=== PATIENT | female | born 1965 | race African-American/Black ===

== ENCOUNTER 2017-01-04 10:47 | Emergency (ER) | payer OTHER ==
[2017-01-04 10:53] VITALS: TEMP 98.2; BMI 40.2
[2017-01-04 11:46] LABS: EOSINOPHIL 0.9 % (0-4.5); MCH 24.9 pg (25.7-33.7); MCHC 31.8 g/dl (32.0-36.0); MEAN CELL VOLUME 78.2 fl (80-96); MEAN PLT VOLUME 10.4 fl (7.5-11.1); NEUTROPHILS 64.6 % (42.8-82.8); PLATELET COUNT 263 K/MM3 (134-434); RDW 14.9 % (11.6-15.6); WHITE BLOOD COUNT 7.3 K/mm3 (4.0-10.0)
[2017-01-04 12:23] LABS: ALBUMIN 3.3 g/dl (3.4-5.0); ANION GAP 6 (8-16); CALCIUM 8.8 mg/dL (8.5-10.1); CO2 30 mmol/L (21-32); CREATININE 0.6 mg/dL (0.55-1.02); GLUCOSE,RANDOM 118 mg/dL (74-106); SGOT/AST 14 U/L (15-37)
[2017-01-04 12:27] LABS: TROPONIN I < 0.02 ng/ml (0.00-0.05)
[2017-01-04 12:31] LABS: ALK PHOS 118 U/L (45-117); BILIRUBIN,TOTAL 0.2 mg/dL (0.2-1.0); SGPT/ALT 18 U/L (12-78); TOT PROT 6.8 g/dl (6.4-8.2)
--- NOTE | 2017-01-04 13:46 | PDOC ---
History of Present Illness - General Chief Complaint: Weakness Stated Complaint: DIZZINESS/WEAKNESS Time Seen by Provider: 01/04/17 10:57 History Source: Patient Exam Limitations: No Limitations - History of Present Illness Initial Comments: 01/04/17 12:40 51-year-old female with history of diabetes hypertension and dyslipidemia presents the ED with complaints of weakness of the left lower extremity without sensory changes, skin discoloration, or pain. Patient states symptoms have been progressively worsening over the past few weeks but more severe over the past 4 days. Patient denies back pain, recent fall, abdominal pain, hip discomfort, or history of DVT. Patient states stopped taking her diabetic meds for a few months but started back 2 weeks ago since she has insurance again but has not followed up with her PCP and decided come to the ER. Patient denies history of back pain, neuropathy, or vascular insufficiency Timing/Duration: getting worse Severity: moderate Associated Symptoms: reports: denies symptoms Past History - Past Medical History Allergies/Adverse Reactions: Allergies Allergy/AdvReac Type Severity Reaction Status Date / Time gluten Allergy Verified 01/04/17 10:49 Home Medications: Ambulatory Orders Insulin Glargine,Hum.rec.anlog [Lantus (nf)] 50 units SQ HS 11/06/14 Lisinopril [Prinivil -] 20 mg PO DAILY 11/06/14 Amlodipine Besylate [Norvasc -] 5 mg PO DAILY #30 tablet 10/01/16 Diabetes: Yes Disorders: No HTN: Yes Hypercholesterolemia: Yes Thyroid Disease: No (hypothyroid-RESOLVED) Other medical history: CELIAC - Family Disease History Family Disease History: Diabetes: Mother - Reproductive History (#): 4 Para: 1 Endometrial CA: No (biopsy low probability) Endometriosis: No Spontaneous : 3 Uterine Fibroids: Yes - Psycho/Social/Smoking Cessation Hx Anxiety: No Suicidal Ideation: No Smoking History: Never smoked Have you smoked in the past 12 months: No Number of Cigarettes Smoked Daily: 0 Hx Alcohol Use: No Drug/Substance Use Hx: No Substance Use Type: None Hx Substance Use Treatment: No Patient Lives Alone: No Review of Systems - Review of Systems Able to Perform ROS?: Yes Constitutional: No: Symptoms Reported HEENTM: No: Symptoms Reported Respiratory: No: Symptoms reported Cardiac (ROS): No: Symptoms Reported ABD/GI: No: Symptoms Reported : No: Symptoms Reported Musculoskeletal: Yes: Muscle Weakness (left lower extremity). No: Muscle Pain Integumentary: No: Symptoms Reported Neurological: Yes: Weakness (left leg). No: Numbness, Tingling, Dizziness Endocrine: No: Symptoms Reported Hematologic/Lymphatic: No: Symptoms Reported *Physical Exam - Vital Signs Last Vital Signs Temp Pulse Resp BP Pulse Ox 98.2 F 93 H 18 152/80 95 01/04/17 10:49 01/04/17 10:49 01/04/17 10:49 01/04/17 10:49 01/04/17 10:49 - Physical Exam General Appearance: Yes: Nourished, Appropriately Dressed. No: Apparent Distress HEENT: negative: Pale Conjunctivae Neck: positive: Normal Thyroid, Supple Respiratory/Chest: positive: Lungs Clear, Normal Breath Sounds. negative: Respiratory Distress, Accessory Muscle Use Cardiovascular: positive: Regular Rhythm, Regular Rate. negative: Murmur Gastrointestinal/Abdominal: positive: Soft. negative: Tenderness Musculoskeletal: negative: CVA Tenderness, Decreased Range of Motion, Vertebral Tenderness Extremity: positive: Normal Capillary Refill, Normal Inspection, Normal Range of Motion. negative: Tender, Coldness, Pedal Edema, Swelling, Erythema Integumentary: positive: Normal Color, Warm, Moist Neurologic: positive: Normal Mood/Affect, Motor Strength 5/5 (Left leg -4/ 5 with passive resistance but otherwise 5 out of 5), Babinski (intact). negative : Sensory Deficit Deep Tendon Reflexes: Knee (L): 2+ ED Treatment Course - LABORATORY CBC & Chemistry Diagram: 01/04/17 11:42 01/04/17 11:42 - ADDITIONAL ORDERS Additional order review: Laboratory Results 01/04/17 11:42 Creatine Kinase 95 Troponin I < 0.02 01/04/17 11:42 RBC 4.45 MCV 78.2 L MCHC 31.8 L RDW 14.9 MPV 10.4 Neutrophils % 64.6 Lymphocytes % 28.1 Monocytes % 5.4 Eosinophils % 0.9 Basophils % 1.0 - RADIOLOGY Radiology Studies Ordered: Category Date Time Status HEAD CT WITHOUT CONTRAST [CT] Stat CT Scan 01/04/17 11:31 Completed CHEST X-RAY PORTABLE* [RAD] Stat Radiology 01/04/17 11:31 Completed Medical Decision Making - Medical Decision Making 01/04/17 12:43 Patient with complaints of left lower extremity weakness. Patient states in the a.m. symptoms are increased but resolves throughout the day. Patient has no saddle anesthesia, complaints of incontinence, or no focal deficits on exam, skin discoloration, or calf tenderness. Patient ordered for labs including acetone and head CT to rule out intracranial pathology versus electrolyte imbalance. 01/04/17 13:47 Laboratory Tests 01/04/17 01/04/17 11:42 11:42 WBC 7.3 Hgb 11.1 D Plt Count 263 Neutrophils % 64.6 Creatine Kinase 95 Troponin I < 0.02 CT negative for acute findings. Chest x-ray negative. Chemistry pending. 01/04/17 15:18 Laboratory Tests 01/04/17 01/04/17 01/04/17 11:42 11:42 14:07 Sodium 139 Potassium 3.8 Chloride 103 Carbon Dioxide 30 Anion Gap 6 L BUN 11 Creatinine 0.6 Random Glucose 118 H D Calcium 8.8 Total Bilirubin 0.2 D AST 14 L D ALT 18 D Alkaline Phosphatase 118 H Creatine Kinase 95 Troponin I < 0.02 Urine Blood 3+ H Ur Leukocyte Esterase Trace H Urine RBC 1480 Urine WBC 3 Acetone, Qual Pending Patient will be discharged home to follow up with referred neurologist patient states is currently menstruating *DC/Admit/Observation/Transfer Diagnosis at time of Disposition: Weakness of left lower extremity - Discharge Dispostion Disposition: HOME Condition at time of disposition: Good - Referrals Referrals: Anton Perrin MD [Staff Physician] - - Patient Instructions Printed Discharge Instructions: DI for Muscle Weakness Additional Instructions: Continue to take your diabetic, Cholesterol and blood pressure medications as prescribed. Please follow-up with referred neurologist and return to ED if symptoms worsen prior to your appointment.
[2017-01-04 14:18] LABS: URINE APPEARANCE SLCLOUDY; URINE BILIRUBIN NEGATIVE (NEGATIVE); URINE BLOOD 3+ (NEGATIVE); URINE COLOR LTYELLOW; URINE GLUCOSE (UA) NEGATIVE (NEGATIVE); URINE KETONE NEGATIVE (NEGATIVE); URINE LEUK ESTERASE TRACE (NEGATIVE); URINE NITRITE NEGATIVE (NEGATIVE); URINE PROTEIN NEGATIVE (NEGATIVE); URINE UROBILINOGEN NEGATIVE E.U./dl (0.2-1.0)
[2017-01-04 14:26] LABS: URINE RBC 1480 /hpf (0-3); URINE WBC 3 /hpf (3-5)
--- NOTE | 2017-01-04 14:34 | EKG ---
Test Reason : Blood Pressure : / mmHG Vent. Rate : 074 BPM Atrial Rate : 074 BPM P-R Int : 150 ms QRS Dur : 078 ms QT Int : 388 ms P-R-T Axes : 044 017 013 degrees QTc Int : 430 ms NORMAL SINUS RHYTHM CANNOT RULE OUT ANTERIOR INFARCT , AGE UNDETERMINED ABNORMAL ECG WHEN COMPARED WITH ECG OF 17-MAR-2016 14:05, NO SIGNIFICANT CHANGE WAS FOUND Confirmed by TAMIKA STONE MD ([id number]) on 01/04/2017 2:34:01 PM Referred By: Confirmed By:TAMIKA STONE MD
[2017-01-04 15:30] VITALS: BP 150/79; PULSE 88
[2017-01-04 16:57] LABS: ACETONE SERUM NEGATIVE (NEGATIVE)
== END 2017-01-04 15:30 | disposition home or self-care (01) ==
LOC: JER 10:47
DX: M62.81 Muscle weakness (generalized) (principal); E11.9 Type 2 diabetes mellitus without complications; Z79.4 Long term (current) use of insulin; I10 Essential (primary) hypertension; E78.00 Pure hypercholesterolemia, unspecified; K90.0 Celiac disease
CPT/HCPCS: 36415; 70450-TC; 71010-TC; 80053; 81003; 81015; 82009; 82550; 84484; 85025; 93005; 93010; 99284-25

== ENCOUNTER 2018-08-09 13:16 | Emergency (ER) | payer OTHER ==
[2018-08-09 13:25] VITALS: TEMP 98; BMI 39.0
--- NOTE | 2018-08-09 15:14 | PDOC ---
History of Present Illness <Phillip Shirley - Last Filed: 08/09/18 18:12> - General History Source: Patient Exam Limitations: No Limitations - History of Present Illness Initial Comments: 08/09/18 15:16 Pt is a 53yo f with PMH of DM, HTN, psoriasis presenting to ED for nasal congestion, cough and headache. Pt says she has been feeling feverish for a while associated with congestion. Headache has been going on for a couple days. Pt ran out of her bp medications 1 week ago and does not have proper PCP follow up. She denies chest pain, SOB, n/v/d, numbness/tingling, changes in vision, urinary symptoms, blood in stool, hemoptysis, lightheadedness, dizziness, syncope. She takes Norvasc and lisinopril for blood pressure, but has not taken lisinopril for months. She takes lantus for DM. PMH: see hpi PSH: none Meds: lantus, norvasc, lisinopril Social: denies Allergies: nkda 08/09/18 16:03 <Silvia Gillette - Last Filed: 08/09/18 19:56> - General Chief Complaint: Headache Stated Complaint: Headache, high blood pressure Time Seen by Provider: 08/09/18 14:45 Past History <Phillip Shirley - Last Filed: 08/09/18 18:12> - Past Medical History COPD: No DVT: No Diabetes: Yes Disorders: No HTN: Yes Hypercholesterolemia: Yes Thyroid Disease: No (hypothyroid-RESOLVED) - Family Disease History Family Disease History: Diabetes: Mother - Reproductive History (#): 4 Para: 1 Endometrial CA: No (biopsy low probability) Endometriosis: No Spontaneous : 3 Uterine Fibroids: Yes - Suicide/Smoking/Psychosocial Hx Smoking History: Never smoked Have you smoked in the past 12 months: No Number of Cigarettes Smoked Daily: 0 Information on smoking cessation initiated: No Hx Alcohol Use: No Drug/Substance Use Hx: No Substance Use Type: None Hx Substance Use Treatment: No <Silvia Gillette - Last Filed: 08/09/18 19:56> - Past Medical History Allergies/Adverse Reactions: Allergies Allergy/AdvReac Type Severity Reaction Status Date / Time gluten Allergy Verified 08/09/18 13:25 Home Medications: Ambulatory Orders Insulin Glargine,Hum.rec.anlog [Lantus (nf)] 50 units SQ HS 11/06/14 Lisinopril [Prinivil -] 20 mg PO DAILY 11/06/14 Amlodipine Besylate [Norvasc -] 5 mg PO DAILY #30 tablet 10/01/16 *Physical Exam - Vital Signs Last Vital Signs Temp Pulse Resp BP Pulse Ox 98 F 118 H 17 172/92 H 99 08/09/18 13:20 08/09/18 13:20 08/09/18 13:20 08/09/18 13:20 08/09/18 13:20 <Phillip Shirley - Last Filed: 08/09/18 18:12> - Vital Signs Last Vital Signs Temp Pulse Resp BP Pulse Ox 98 F 118 H 17 172/92 H 99 08/09/18 13:20 08/09/18 13:20 08/09/18 13:20 08/09/18 13:20 08/09/18 13:20 <Silvia Gillette - Last Filed: 08/09/18 19:56> ED Treatment Course - LABORATORY CBC & Chemistry Diagram: 08/09/18 16:40 08/09/18 16:40 - ADDITIONAL ORDERS Additional order review: Laboratory Results 08/09/18 08/09/18 08/09/18 16:45 16:45 16:40 Sodium 139 Potassium 3.4 L Chloride 102 Carbon Dioxide 32 Anion Gap 4 L BUN 13 Creatinine 0.7 Creat Clearance w eGFR > 60 Random Glucose 240 H Calcium 8.7 Total Bilirubin 0.3 AST 21 ALT 36 Alkaline Phosphatase 133 H Total Protein 7.6 Albumin 3.5 Urine Color Straw Urine Appearance Clear Urine pH 7.0 Ur Specific [place] 1.011 Urine Protein Negative Urine Glucose (UA) 3+ H Urine Ketones Negative Urine Blood Negative Urine Nitrite Negative Urine Bilirubin Negative Urine Urobilinogen Negative Ur Leukocyte Esterase Negative Urine HCG, Qual Negative 08/09/18 16:40 RBC 4.75 MCV 82.8 MCHC 32.3 RDW 14.8 MPV 10.4 Neutrophils % 61.6 Lymphocytes % 29.8 Monocytes % 6.0 Eosinophils % 1.6 Basophils % 1.0 - Medications Given in the ED: ED Medications Discontinued Medications Generic Name Dose Route Start Last Admin Trade Name Freq PRN Reason Stop Dose Admin Amlodipine Besylate 5 mg 08/09/18 16:33 08/09/18 16:46 Norvasc - PO 08/09/18 16:34 5 mg ONCE ONE Administration Sodium Chloride 1,000 mls @ 1,000 mls/hr 08/09/18 15:57 08/09/18 16:46 Normal Saline - IV 08/09/18 16:56 1,000 mls/hr ASDIR STA Administration <Phillip Shirley - Last Filed: 08/09/18 18:12> - LABORATORY CBC & Chemistry Diagram: 08/09/18 16:40 08/09/18 16:40 <Silvia Gillette - Last Filed: 08/09/18 19:56> Medical Decision Making - Medical Decision Making 08/09/18 15:13 53yo F with PMH of DM, HTN presenting to ED with complaints of mold in her apartment causing her to feel sick. Will recheck vitals. CBC, CMP to evaluate for end organ damage. UA. 08/09/18 16:04 rheum f/u, pcp f/u, rheum 08/09/18 16:52 Pt says she takes norvasc 5mg. Will order for pt and recheck bp. 08/09/18 18:09 New bp 170s/70s hr 80s. 08/09/18 19:55 refill home 7 d supply <Silvia Gillette - Last Filed: 08/09/18 19:56> *DC/Admit/Observation/Transfer <Phillip Shirley - Last Filed: 08/09/18 18:12> - Discharge Dispostion Decision to Admit order: No <Silvia Gillette - Last Filed: 08/09/18 19:56> Diagnosis at time of Disposition: Congestion of nasal sinus Headache Qualifiers: Headache type: unspecified Headache chronicity pattern: unspecified pattern Intractability: not intractable Qualified Code(s): R51 - Headache - Discharge Dispostion Disposition: HOME Condition at time of disposition: Good - Referrals Referrals: Yahaira Johns MD [Staff Physician] - Vicente Camacho MD [Staff Physician] - - Patient Instructions Printed Discharge Instructions: DI for Headache, DI for Nasal Congestion Additional Instructions: You were seen here today for evaluation of your headaches and congestion. Your blood work was normal. Remember to take your blood pressure medications daily. Uncontrolled blood pressure can eventually lead to kidney disease, heart disease, other serious illness, disability, or even . Please make an appointment with Dr. Johns in the next week for further evaluation and treatment. Dr. Manrique is a call circuit worker associated with [facility]. You can make an appointment by calling the office at Please come back to the emergency room if: your headaches get worse, you feel dizzy, you develop fever, you start vomiting, if you develop chest pain or if any new concerning symptom develops. Thank you
[2018-08-09] MEDS ORDERED: SODIUM CHLORIDE 1,000 ML IV STA (15:57)
--- NOTE | 2018-08-09 16:04 | PDOC ---
Attending Attestation - Resident Resident Name: LetaSilvia - ED Attending Attestation I have performed the following: I have examined & evaluated the patient, The case was reviewed & discussed with the resident, I agree w/resident's findings & plan, Exceptions are as noted - HPI HPI: 08/09/18 16:13 53 F with h/o DM, HTN, psoriasis presents to ED with nasal congestion and malaise x several days. Reports subjective fevers at home. Denies cough. Denies CP/SOB. Denies abdominal pain. Denies N/V/D. Denies dysuria. Pt states that she feels like her symptoms may be due to mold exposure at home. Pt's vitals in ED notable for HTN. Pt admits to not taking her BP meds for some time due to poor follow up with her PMD. - Physicial Exam PE: 08/09/18 16:16 GENERAL: Awake, alert, and fully oriented, in no acute distress. HEAD: No signs of trauma EYES: PERRLA, EOMI, sclera anicteric, conjunctiva clear ENT: Auricles normal inspection, hearing grossly normal, nares patent, oropharynx clear without exudates. Moist mucosa NECK: Nontender, no stepoffs, Normal ROM, supple, no lymphadenopathy, JVD, or masses LUNGS: Breath sounds equal, clear to auscultation bilaterally. No wheezes, and no crackles HEART: Regular rate and rhythm, normal S1 and S2, no murmurs, rubs or gallops ABDOMEN: Soft, nontender, normoactive bowel sounds. No guarding, no rebound. No masses EXTREMITIES: Normal range of motion, no edema. No clubbing or cyanosis. No cords, erythema, or tenderness NEUROLOGICAL: Cranial nerves II through XII intact. 5/5 strength and sensation in all extremities, Normal speech, normal gait, normal cerebellar function SKIN: Warm, Dry, normal turgor, no rashes or lesions noted. - Medical Decision Making 08/09/18 16:16 53 F with nasal congestion, malaise, and subjective fevers. Likely viral syndrome. Pt with no focal infectious findings on exam. - Labs, UA, CXR - IVF - Home BP meds 08/09/18 19:54 Labs and CXR unremarkable. Pt with persistently elevated BP. However, this is likely pt's baseline BP. Pt with no concerning signs/symptoms of end organ damage. Will DC pt with PMD f/u. Pt understands importance of snf BP control and states she will f/u with her PMD. Pt is well appearing. Clinically stable for DC at this time. I discussed the physical exam findings, ancillary test results and final diagnoses with the patient. I answered all of the patient's questions. The patient was satisfied with the care received and felt comfortable with the discharge plan and treatment plan. The patient agrees to follow up with the primary care physician within 24-72 hours.
[2018-08-09] MEDS ORDERED: amLODIPine BESYLATE 5 MG TABLET (FP) PO ONE (16:33)
[2018-08-09] MEDS ORDERED: amLODIPine BESYLATE 5 MG TABLET (FP) ONE (16:46)
[2018-08-09 16:52] LABS: EOS % 1.6 % (0-4.5); HEMATOCRIT 39.3 % (32.4-45.2); HEMOGLOBIN 12.7 GM/dL (10.7-15.3); LYMPH % 29.8 % (8-40); MCH 26.7 pg (25.7-33.7); MCHC 32.3 g/dl (32.0-36.0); MEAN CELL VOLUME 82.8 fl (80-96); MEAN PLT VOLUME 10.4 fl (7.5-11.1); NEUT % 61.6 % (42.8-82.8); PLATELET COUNT 244 K/MM3 (134-434); RBC 4.75 M/mm3 (3.60-5.2); RDW 14.8 % (11.6-15.6); WHITE BLOOD COUNT 6.3 K/mm3 (4.0-10.0)
[2018-08-09 17:16] LABS: ALBUMIN 3.5 g/dl (3.4-5.0); ALK PHOS 133 U/L (45-117); ANION GAP 4 MMOL/L (8-16); BILIRUBIN,TOTAL 0.3 mg/dL (0.2-1); BLOOD UREA NITROGEN 13 mg/dL (7-18); CALCIUM 8.7 mg/dL (8.5-10.1); CHLORIDE 102 mmol/L (98-107); CO2 32 mmol/L (21-32); CREATININE 0.7 mg/dL (0.55-1.3); GLUCOSE,RANDOM 240 mg/dL (74-106); POTASSIUM 3.4 mmol/L (3.5-5.1); SGOT/AST 21 U/L (15-37); SGPT/ALT 36 U/L (13-61); SODIUM 139 mmol/L (136-145); TOT PROT 7.6 g/dl (6.4-8.2)
[2018-08-09 17:22] LABS: URINE APPEARANCE CLEAR; URINE BILIRUBIN NEGATIVE (<2.0 mg/dL); URINE COLOR STRAW; URINE GLUCOSE (UA) 3+ (NEGATIVE); URINE KETONE NEGATIVE (NEGATIVE); URINE LEUK ESTERASE NEGATIVE (NEGATIVE); URINE NITRITE NEGATIVE (NEGATIVE); URINE PROTEIN NEGATIVE (NEGATIVE); URINE UROBILINOGEN NEGATIVE mg/dL (0.2-1.0)
[2018-08-09] MEDS ORDERED: LISINOPRIL 20 MG TABLET (FP) PO ONE (19:56)
[2018-08-09] MEDS ORDERED: LISINOPRIL 20 MG TABLET (FP) ONE (19:57)
[2018-08-09 20:06] VITALS: PULSE 74
[2018-08-09 20:42] VITALS: BP 188/80
== END 2018-08-09 20:43 | disposition home or self-care (01) ==
LOC: JER 13:16
PROC: 3E0337Z Introduction of Electrolytic and Water Balance Substance into Peripheral Vein, Percutaneous Approach (ICD-10-PCS; principal; 2018-08-09)
DX: R09.81 Nasal congestion (principal); R51 Headache
CPT/HCPCS: 36415; 71046-TC-FY; 80053; 81003; 84703; 85025; 99281-25; J7030

== ENCOUNTER 2020-01-14 07:34 | Emergency (ER) | payer OTHER ==
[2020-01-14 07:43] VITALS: BP 152/71; PULSE 103; TEMP 97.8; BMI 39.0
[2020-01-14] MEDS ORDERED: IBUPROFEN 600 MG TABLET (FP) PO ONE ×2 (08:01→08:08)
--- NOTE | 2020-01-14 08:01 | PDOC ---
History of Present Illness - General Chief Complaint: Injury Stated Complaint: RT LEG INJURY Time Seen by Provider: 01/14/20 07:49 History Source: Patient Exam Limitations: No Limitations - History of Present Illness Initial Comments: 01/14/20 07:57 Patient is a 54-year-old female with a history of hypertension, diabetes and hyperlipidemia who presents to the ED with a right ankle injury that she sustained 4 days ago. She states she had slipped on some water in her house and inverted her right ankle. She has been able to walk on it since her injury. She has iced her ankle but states she only did it a few times. She has been taking Advil for pain which has been helping a little bit. She denies any other injuries. She states the pain is primarily to the lateral aspect of her right ankle and does not radiate. Past History - Past Medical History Allergies/Adverse Reactions: Allergies Allergy/AdvReac Type Severity Reaction Status Date / Time gluten Allergy Verified 01/14/20 07:36 Home Medications: Ambulatory Orders Insulin Glargine,Hum.rec.anlog [Lantus (nf)] 60 units SQ HS 11/06/14 Lisinopril [Prinivil -] 20 mg PO DAILY 11/06/14 Amlodipine Besylate [Norvasc -] 5 mg PO DAILY #7 tablet 08/09/18 COPD: No DVT: No Diabetes: Yes Disorders: No HTN: Yes Hypercholesterolemia: Yes Thyroid Disease: No (hypothyroid-RESOLVED) - Reproductive History (#): 4 Para: 1 Endometrial CA: No (biopsy low probability) Endometriosis: No Spontaneous : 3 Uterine Fibroids: Yes - Psycho Social/Smoking Cessation Hx Smoking History: Never smoked Have you smoked in the past 12 months: No Number of Cigarettes Smoked Daily: 0 Information on smoking cessation initiated: No Hx Alcohol Use: No Drug/Substance Use Hx: No Substance Use Type: None Hx Substance Use Treatment: No Review of Systems - Review of Systems Comments:: 01/14/20 07:58 - Review of Systems Able to Perform ROS?: Yes Constitutional: No: Fever, Chills, Loss of Appetite, Night Sweats, Weakness Respiratory: No: Cough, Shortness of Breath, Wheezing, Sputum Production Cardiac (ROS): No: Chest Pain, Chest Tightness, Palpitations, Irregular Heart Beat, Edema ABD/GI: No: Nausea, Vomiting, Abdominal Pain, Diarrhea Musculoskeletal: No: Muscle Pain, Back Pain, Muscle Weakness, Neck Pain; positive: Right ankle injury and pain Integumentary: No: Lesions, Rash Neurological: No: Headache, Numbness, Tingling, Weakness, Speech Difficulties *Physical Exam - Vital Signs Last Vital Signs Temp Pulse Resp BP Pulse Ox 97.8 F 103 H 18 152/71 99 01/14/20 07:36 01/14/20 07:36 01/14/20 07:36 01/14/20 07:36 01/14/20 07:36 - Physical Exam 01/14/20 07:59 - Physical Exam General Appearance: Nourished, Appropriately Dressed, No Distress Neck: Supple, No Lymphadenopathy (R), No Lymphadenopathy (L), No Rigidity, No Decreased range of motion Respiratory/Chest: Lungs Clear, Normal Breath Sounds. No Respiratory Distress, No Accessory Muscle Use Cardiovascular: Regular Rhythm, Regular Rate, S1, S2 Gastrointestinal/Abdominal: Normal Bowel Sounds, Soft. Non-tender, No Guarding, No Rebound, No Rigidity Musculoskeletal: Normal Inspection. Right ankle with anterolateral tenderness to palpation. Moderate swelling appreciated. Moderate ecchymosis appreciated to the right ankle and extending into the dorsum of the foot. No tenderness to palpation to the foot. Patient able to move all toes freely. DP and PT pulse 2+. Brisk capillary refill distally. Extremity: Normal Capillary Refill, Normal Inspection Integumentary: Normal Color, Dry. No Rash Neurologic: plant tender II-XII NML intact, Fully Oriented, Alert, Normal Mood/Affect, Normal Response Procedures - Splinting Splint Location: Right: Ankle Pre-Proc Neuro Vasc Exam: normal Hand-Made Type: orthoglass Splint Type: Yes: Posterior (and stirrup ) Post-Proc Neuro Vasc Exam: normal Dmitry Bandage: yes, 3" (x1), 6" (x2) Complications: No ED Treatment Course - RADIOLOGY Radiology Studies Ordered: Category Date Time Status ANKLE-LEFT [RAD] Stat Radiology 01/14/20 07:54 Ordered Medical Decision Making - Medical Decision Making 01/14/20 08:00 Assessment: Patient is a 54-year-old female with a right ankle injury. Plan: -Right ankle x-ray ordered -Motrin ordered -Will reassess 01/14/20 08:46 Pt with a displaced R distal fibular fracture with widened ankle mortise appreciated. Page to Dr. Howe/Ronnell placed. I have spoken with Dr. Reynaga and he suggests splinting the patient and have her go directly to their [place] office for further evaluation and treatment. 01/14/20 09:08 The patient has been made aware that she has a distal fibula fracture with widened ankle mortise. I have also made her aware that I spoke with Dr. Reynaga and she should follow-up directly with him from leaving the emergency department. The patient was placed in a posterior and stirrup splint using Ortho-Glass and given crutches. She has been made aware that she must remain strictly nonweightbearing on the right lower extremity. She understands that she should go directly to Dr. Reynaga's office upon leaving the emergency department. She has been given strict return precautions such as increased pain, numbness or tingling to her toes, change in color of her toes or any other worsening symptoms. She understands and agrees with this treatment plan and the patient stable for discharge. Discharge - Discharge Information Problems reviewed: Yes Clinical Impression/Diagnosis: Fracture of distal fibula Qualifiers: Encounter type: initial encounter Fracture type: closed Fracture morphology: other fracture Laterality: right Qualified Code(s): S82.831A - Other fracture of upper and lower end of right fibula, initial encounter for closed fracture Condition: Stable Disposition: HOME - Follow up/Referral Referrals: Yahaira Johns MD [Primary Care Provider] - Phillip Reynaga MD [Staff Physician] - - Patient Discharge Instructions Patient Printed Discharge Instructions: DI for Ankle Fracture Additional Instructions: You have a right distal fibular fracture with a widened ankle mortise. You have been splinted in the emergency department but this will need more definitive treatment by an orthopedic surgeon. Follow up with Dr. Reynaga for further evaluation and treatment. He states that you can go directly to his office in [place] after leaving here. Do not bear any weight on your right lower extremity and use the crutches at all times. Be sure to ice and elevate your right lower extremity. Return to the emergency department for worsening pain, discoloration of your toes, numbness or tingling or any other worsening sy mptoms. Dr. Reynaga [address], [place] [address] - Post Discharge Activity Work/Back to School Note: Back to Work
== END 2020-01-14 09:30 | disposition home or self-care (01) ==
LOC: JER 07:34
PROC: 2W3QX1Z Immobilization of Right Lower Leg using Splint (ICD-10-PCS; principal; 2020-01-14)
DX: S82.831A Other fracture of upper and lower end of right fibula, initial encounter for closed fracture (principal); W01.0XXA Fall on same level from slipping, tripping and stumbling without subsequent striking against object, initial encounter; Y93.89 Activity, other specified; Y92.038 Other place in apartment as the place of occurrence of the external cause; Y99.8 Other external cause status; Z91.02 Food additives allergy status
CPT/HCPCS: 73610-TC-RT-FY; 99283-25

== ENCOUNTER 2022-03-01 09:31 | Emergency (ER) | payer OTHER ==
[2022-03-01 09:46] VITALS: TEMP 98.3; BMI 39.1
[2022-03-01] MEDS ORDERED: SODIUM CHLORIDE 0.9% 500 ML INFUS.BAG IV ONE (12:18)
[2022-03-01 12:19] LABS: BASO % 0.3 % (0-2.0); EOS % 3.6 % (0-4.5); HEMATOCRIT 41.9 % (32.4-45.2); HEMOGLOBIN 13.3 GM/dL (10.7-15.3); LYMPH % 22.4 % (8-40); MCHC 31.8 g/dl (32.0-36.0); MEAN CELL VOLUME 84.7 fl (80-96); MEAN PLT VOLUME 11.8 fl (7.5-11.1); MONO % 6.3 % (3.8-10.2); NEUT % 67.4 % (42.8-82.8); PH,URINE 8.5 (5.0-8.0); PLATELET COUNT 235 10^3/uL (134-434); RBC 4.94 M/mm3 (3.60-5.2); RDW 14.4 % (11.6-15.6); URINE APPEARANCE CLEAR; URINE BILIRUBIN NEGATIVE (NEGATIVE); URINE COLOR YELLOW; URINE GLUCOSE (UA) 3+ (NEGATIVE); URINE KETONE 1+ (NEGATIVE); URINE LEUK ESTERASE NEGATIVE (NEGATIVE); URINE NITRITE NEGATIVE (NEGATIVE); URINE PROTEIN NEGATIVE (NEGATIVE); URINE UROBILINOGEN 0.2 mg/dL (0.2-1.0); WHITE BLOOD COUNT 4.5 K/mm3 (4.0-10.0)
[2022-03-01 12:43] LABS: CHLORIDE 99 mmol/L (98-107); SODIUM 136 mmol/L (136-145)
[2022-03-01 12:45] LABS: ALBUMIN 3.9 g/dl (3.4-5.0); ANION GAP 6 MMOL/L (8-16); BLOOD UREA NITROGEN 16.6 mg/dL (7-18); CALCIUM 9.6 mg/dL (8.5-10.1); CO2 31 mmol/L (21-32)
[2022-03-01 12:48] LABS: CREATININE 0.9 mg/dL (0.55-1.3); SGPT/ALT 36 U/L (13-61)
[2022-03-01 12:49] LABS: SGOT/AST 16 U/L (15-37)
[2022-03-01 12:50] LABS: BILIRUBIN,TOTAL 0.4 mg/dL (0.2-1); TOT PROT 7.7 g/dl (6.4-8.2)
[2022-03-01 12:51] LABS: ALK PHOS 138 U/L (45-117); GLUCOSE,RANDOM 476 mg/dL (74-106)
[2022-03-01] MEDS ORDERED: INSULIN REGULAR HUMAN 100 UNITS/ML *VIAL SQ ONE (13:01)
[2022-03-01] MEDS ORDERED: FLUCONAZOLE 50 MG TABLET PO ONE (13:11)
[2022-03-01] MEDS ORDERED: FLUCONAZOLE 150 MG TABLET PO ONE (13:16)
[2022-03-01 13:50] VITALS: BP 150/96; PULSE 92
[2022-03-01] MEDS ORDERED: NYSTATIN 100,000 UNIT/GM TOPICAL CREAM 15 GM TUBE TP ONE (14:00)
== END 2022-03-01 17:01 | disposition home or self-care (01) ==
LOC: JER 09:31
DX: R73.9 Hyperglycemia, unspecified (principal); B37.2 Candidiasis of skin and nail
CPT/HCPCS: 36415; 80053; 81003; 82010; 82962; 85025; 87086; 93005; 93010; 99284-25